=== PATIENT | male | born 1985 | race Caucasian/White ===

== ENCOUNTER 2024-08-11 06:19 | Day surgery (SDC) | payer OTHER ==
[~2024-08-11] VITALS: Ht 180.3 cm; Wt 47.7 kg
[2024-08-11] MEDS ORDERED: RINGERS SOLUTION,LACTATED 0 ML IV ONE (06:29)
[2024-08-11] MEDS ORDERED: RINGERS SOLUTION,LACTATED 1,000 ML IV ONE (06:30)
[2024-08-11 07:28] LABS: BASOPHILS % (AUTO) 1.5 % (0.0-2.0); EOSINOPHILS % (AUTO) 4.3 % (1.0-6.0); HEMATOCRIT 25.8 % (41-53); LYMPHOCYTES # (AUTO) 2.5 K/uL (1.0-4.8); LYMPHOCYTES % (AUTO) 47.2 % (22.0-44.0); MEAN CORPUSCULAR HEMOGLOBIN 16.5 pg (26.0-34.0); MEAN CORPUSCULAR HGB CONC 26.2 G/dL (31.0-37.0); MEAN CORPUSCULAR VOLUME 63 fL (80-100); MONOCYTES # (AUTO) 0.6 K/uL (0.1-1.0); MONOCYTES % (AUTO) 11.4 % (2.0-9.0); NEUTROPHILS # (AUTO) 1.9 K/uL (1.8-7.7); NEUTROPHILS % (AUTO) 35.6 % (40.0-70.0); PLATELET COUNT (AUTO) 259 K/uL (150-450); RED CELL DISTRIBUTION WIDTH 18.5 % (11.5-14.5); WHITE BLOOD COUNT (AUTO) 5.3 K/uL (4.5-11.0)
[2024-08-11 07:38] LABS: HEMOGLOBIN 6.8 g/dL (13.5-17.5)
[2024-08-11] MEDS ORDERED: AMPICILLIN SODIUM 2 GM/NS 0 ML IV ONE (07:39)
[2024-08-11 07:44] LABS: ANION GAP 9 mmol/L (8-16); CALCIUM, TOTAL 8.8 mg/dL (8.8-10.5); CARBON DIOXIDE 27 mmol/L (22-29); CHLORIDE 105 mmol/L (98-107); CREATININE 0.71 mg/dL (0.60-1.30); GLOMERULAR FILTR. RATE CALC > 60 mL/min (>60); GLUCOSE,RANDOM 89 mg/dL (70-110); POTASSIUM 3.7 mmol/L (3.5-5.1); SODIUM SERUM 141 mmol/L (136-145); UREA NITROGEN, BLOOD 18 mg/dL (7-18)
[2024-08-11 07:46] LABS: PROTHROMBIN TIME 11.2 SEC (9.4-11.6)
[2024-08-11 07:50] LABS: ALANINE AMINOTRANSFERASE 14 U/L (12-78); ALBUMIN 3.4 g/dL (3.4-5.0); ALKALINE PHOSPHATASE 78 U/L (46-116); ASPARTATE AMINOTRANSFERASE 14 U/L (15-37); BILIRUBIN,TOTAL 0.4 mg/dL (0.1-1.0); TOTAL PROTEIN, SERUM 7.3 g/dL (6.4-8.2)
[2024-08-11] MEDS ORDERED: QUET25TA36 PO (09:08)
[2024-08-11] MEDS ORDERED: QUET100T34 PO (09:08)
[2024-08-11 09:10] LABS: RBC MORPHOLOGY COMMENT ABNORMAL RBC MORPH
== END 2024-08-11 08:45 | disposition home or self-care (01) ==
LOC: SURGERY 06:19
PROVIDERS: ATTEND Dentist General Practice
DX: K05.6 Periodontal disease, unspecified (principal); Z53.8 Procedure and treatment not carried out for other reasons; K59.00 Constipation, unspecified; F72 Severe intellectual disabilities; Z79.01 Long term (current) use of anticoagulants; Z79.899 Other long term (current) drug therapy
CPT/HCPCS: 71045; 80053; 85025; 85610; 85730; 93005; J0290; J7120; 36415-L1; 36415-TC